=== PATIENT | male | born 1940 | race Caucasian/White ===

== ENCOUNTER 2019-11-26 13:44 | Emergency (ER) | payer OTHER, MEDICARE ==
[2019-11-26] MEDS ORDERED: LIDOCAINE 1% MPF 30 ML VIAL ONE (15:11)
[2019-11-26] MEDS ORDERED: DOXYCYCLINE 100 MG CAP PO ONE (15:11)
[2019-11-26] MEDS ORDERED: TETANUS & DIPHTHERIA TOX,ADULT 0.5 ML VIAL ONE (15:11)
--- NOTE | 2019-11-26 15:48 | ER ---
Nurse's Notes [facility] Name: Chip Sheriff Age: 79 yrs Sex: Male : 1940 Arrival Date: 11/26/2019 Time: 13:47 Bed 13 Private MD: Diagnosis: Hand Laceration Presentation: 11/25 14:01 Chief complaint: Patient states: Lac on L palm of hand by the hook of a Tie down strap ca1 <1.5 hrs [employer]. bleeding controlled. Coronavirus screen: Client denies travel out of the [place] in the last 14 days. At this time, the client does not indicate any symptoms associated with coronavirus-19. The client denies any previous COVID testing. Ebola Screen: Patient negative for fever greater than or equal to 101.5 degrees Fahrenheit, and additional compatible Ebola Virus Disease symptoms Patient denies exposure to infectious person. Patient denies travel to an Ebola-affected area in the 21 days before illness onset. No symptoms or risks identified at this time. Initial Sepsis Screen: Does the patient meet any 2 criteria? No. Patient's initial sepsis screen is negative. Does the patient have a suspected source of infection? No. Patient's initial sepsis screen is negative. Risk Assessment: Do you want to hurt yourself or someone else? Patient reports no desire to harm self or others. Onset of symptoms was November 26, 2019. 14:01 Method Of Arrival: Ambulatory ca1 14:01 Acuity: SATNAM 4 ca1 16:17 Complicating Factors: There are no complicating factors for this patient. jd3 - Immunization history:: Adult Immunizations up to date, Last tetanus immunization: unknown, Flu vaccine is up to date. - Social history:: Smoking status: Patient/guardian denies using tobacco, the patient reports quitting approximately 40 years ago. Screenin:33 Abuse screen: Denies threats or abuse. Nutritional screening: No deficits noted. jd3 Tuberculosis screening: No symptoms or risk factors identified. Fall Risk Ambulatory Aid- None/Bed Rest/Nurse Assist (0 pts). Gait- Normal/Bed Rest/Wheelchair (0 pts) Mental Status- Oriented to own ability (0 pts). Total Schmidt Fall Scale indicates No Risk (0-24 pts). Assessment: 15:32 General: Appears in no apparent distress. comfortable, Behavior is calm, cooperative, jd3 appropriate for age. Pain: Complains of pain in left hand. Neuro: Level of Consciousness is awake, alert, obeys commands, Oriented to person, place, time, situation. Cardiovascular: Capillary refill < 3 seconds Patient's skin is warm and dry. Respiratory: Airway is patent Respiratory effort is even, unlabored, Respiratory pattern is regular, symmetrical. GI: No signs and/or symptoms were reported involving the gastrointestinal system. : No signs and/or symptoms were reported regarding the genitourinary system. EENT: No signs and/or symptoms were reported regarding the EENT system. Derm: Skin is intact, Skin is dry, Skin is normal, Skin temperature is warm. Musculoskeletal: Circulation, motion, and sensation intact. Range of motion: intact in all extremities. Injury Description: Laceration sustained to left hand is 7.6 to 20 cm long, not bleeding. 16:18 Reassessment: Patient appears in no apparent distress at this time. Patient and/or jd3 family updated on plan of care and expected duration. Pain level reassessed. Patient is alert, oriented x 3, equal unlabored respirations, skin warm/dry/pink. Vital Signs: 14:01 BP 161 / 79; Pulse 54; Resp 16 S; Temp 97.5(TE); Pulse Ox 100% on R/A; Weight 97.52 kg ca1 (R); Height 5 ft. 9 in. (175.26 cm) (R); Pain 5/10; 14:01 Body Mass Index 31.75 (97.52 kg, 175.26 cm) ca1 ED Course: 13:47 Patient arrived in ED. as 14:03 Triage completed. ca1 14:49 Dashawn Hidalgo PA is PHCP. [facility] 14:49 Raul Navas MD is Attending Physician. jm 14:56 Valeria Villarreal, AUNDREA is Primary Nurse. iw 15:33 Arm band placed on. jd3 15:34 Patient has correct armband on for positive identification. Bed in low position. Call jd3 light in reach. Side rails up X 1. Pulse ox on. NIBP on. 15:34 Assist provider with laceration repair on left hand that was between 7.6 to 12.5 cm jd3 using sutures. Set up tray. Performed by Dashawn CUMMINS Patient tolerated well. Patient did not have IV access during this emergency room visit. 16:18 Wound care: to laceration located on left hand was cleaned with dressed with 4X4s, mik Kerlix. 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 Exp: 06/18/2020. Lot #: [id number]. } Route: IM; Site: right deltoid; 16:19 Follow up: Response: No adverse reaction jd3 15:08 Drug: Doxycycline 100 mg Route: PO; iw 16:19 Follow up: Response: No adverse reaction jd3 15:19 Drug: Lidocaine (1 %) 20 ml Volume: 20 ml; Route: Infiltration; jd3 16:19 Follow up: Response: No adverse reaction jd3 Outcome: 15:48 Discharge ordered by . kimberly 16:17 Discharged to home ambulatory, with family. jd3 16:17 Condition: stable 16:17 Discharge instructions given to patient, Instructed on discharge instructions, follow up and referral plans. medication usage, Demonstrated understanding of instructions, follow-up care, medications, Prescriptions given X 1. 16:19 Patient left the ED. jd3 Signatures: Dashawn Hidalgo PA PA jmm Martinez, Amelia as Williams, Irene, RN RN iw Davies, Jonathon, RN RN jd3 Acob, Cheryl, RN RN ca1
--- NOTE | 2019-11-26 15:48 | EDPHYS ---
Physician Documentation [facility] Name: Chip Sheriff Age: 79 yrs Sex: Male : 1940 Arrival Date: 11/26/2019 Time: 13:47 Bed 13 Private MD: ED Physician Raul Navas HPI: 11/25 14:50 This 79 yrs old Male presents to ER via Ambulatory with complaints of jmm Laceration To Hand. 14:50 The patient has a laceration occurred. The laceration(s) is(are) located on the left jmm hand. Onset: The symptoms/episode began/occurred acutely, just prior to arrival. Associated signs and symptoms: Pertinent negatives: deformity, dizziness, heavy bleeding, loss of consciousness, numbness distal to injury, suspected foreign body. Patient states his hand caught a hook while grabbing onto a boat just prior to arrival. Patient is unsure on tetanus immunizations. - Immunization history:: Adult Immunizations up to date, Last tetanus immunization: unknown, Flu vaccine is up to date. - Social history:: Smoking status: Patient/guardian denies using tobacco, the patient reports quitting approximately 40 years ago. ROS: 14:50 Constitutional: Negative for fever, chills, and weight loss, Cardiovascular: Negative jmm for chest pain, palpitations, and edema, Respiratory: Negative for shortness of breath, cough, wheezing, and pleuritic chest pain. 14:50 MS/extremity: Positive for injury or acute deformity, laceration. 14:50 All other systems are negative. Exam: 14:50 Constitutional: This is a well developed, well nourished patient who is awake, alert, jmm and in no acute distress. Head/Face: atraumatic. Eyes: EOMI, no conjunctival erythema appreciated ENT: Moist Mucus Membranes Neck: Trachea midline, Supple Chest/axilla: Normal chest wall appearance and motion. Cardiovascular: Regular rate and rhythm. No edema appreciated Respiratory: Normal respirations, no respiratory distress appreciated Abdomen/GI: Non distended, soft Back: Normal ROM 14:50 Neuro: Awake and alert, normal gait Psych: Behavior is normal, Mood is normal, Patient is cooperative and pleasant 14:50 Skin: 4 cm laceration noted ot the palm of the left hand. Vital Signs: 14:01 BP 161 / 79; Pulse 54; Resp 16 S; Temp 97.5(TE); Pulse Ox 100% on R/A; Weight 97.52 kg ca1 (R); Height 5 ft. 9 in. (175.26 cm) (R); Pain 5/10; 14:01 Body Mass Index 31.75 (97.52 kg, 175.26 cm) ca1 Laceration: 15:46 Wound Repair of 4cm ( 1.6in ) subcutaneous laceration to left hand. Distal jmm neuro/vascular/tendon intact. Anesthesia: Local anesthetic administered with 5 mls of 1% lidocaine. Wound prep: Simple cleansing with betadine by me. Skin closed with 8 5-0 Prolene using simple sutures and sterile technique. Patient tolerated well. MDM: 14:50 Patient medically screened. sofia 15:46 Data reviewed: vital signs, nurses notes. Counseling: I had a detailed discussion with kimberly the patient and/or guardian regarding: the historical points, exam findings, and any diagnostic results supporting the discharge/admit diagnosis, the need for outpatient follow up, to return to the emergency department if symptoms worsen or persist or if there are any questions or concerns that arise at home. ED course: Patient given wound infection return precautions. Patient understood and agrees with the plan of care. . 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 Exp: iw 06/18/2020. Lot #: [id number]. } Route: IM; Site: right deltoid; 16:19 Follow up: Response: No adverse reaction jd3 15:08 Drug: Doxycycline 100 mg Route: PO; iw 16:19 Follow up: Response: No adverse reaction jd3 15:19 Drug: Lidocaine (1 %) 20 ml Volume: 20 ml; Route: Infiltration; jd3 16:19 Follow up: Response: No adverse reaction jd3 Disposition: 18:19 Co-signature as Attending Physician, Raul Navas MD I agree with the assessment and [facility] plan of care. Disposition: 11/26/19 15:48 Discharged to Home. Impression: Hand Laceration. - Condition is Stable. - Discharge Instructions: Laceration Care, Adult. - Prescriptions for Doxycycline Hyclate 100 mg Oral Tablet - take 1 tablet by ORAL route every 12 hours; 20 tablet. - Medication Reconciliation Form, Thank You Letter, Antibiotic Education, Prescription Opioid Use form. - Follow up: Private Physician; When: 7 - 10 days; Reason: Recheck today's complaints, Continuance of care, Re-evaluation by your physician. Signatures: Raul Navas MD MD cha Mickail, Joel, PA PA jmm Williams, Irene, RN RN iw Davies, Jonathon, RN RN jd3 Lino, AUNDREA Castillo RN ca1 Corrections: (The following items were deleted from the chart) 16:19 15:48 11/26/2019 15:48 Discharged to Home. Impression: Hand Laceration. Condition is jd3 Stable. Forms are Medication Reconciliation Form, Thank You Letter, Antibiotic Education, Prescription Opioid Use. Follow up: Private Physician; When: 7 - 10 days; Reason: Recheck today's complaints, Continuance of care, Re-evaluation by your physician. kimberly
[2019-11-26 16:27] VITALS: BP 161/79; TEMP 97.5; O2SAT 100
== END 2019-11-26 16:19 | disposition home or self-care (01) ==
LOC: ER 13:44
PROC: 0JQK0ZZ Repair Left Hand Subcutaneous Tissue and Fascia, Open Approach (ICD-10-PCS; principal; 2019-11-26)
DX: S61.412A Laceration without foreign body of left hand, initial encounter (principal); W26.8XXA Contact with other sharp object(s), not elsewhere classified, initial encounter; Y93.89 Activity, other specified; Y92.9 Unspecified place or not applicable; Z23 Encounter for immunization
CPT/HCPCS: 90471; 90714; 99284

== ENCOUNTER 2023-07-21 12:22 | Emergency (ER) | payer OTHER ==
--- NOTE | 2023-07-21 12:55 | EDPHYS ---
Physician Documentation [facility] Name: Chip Sheriff Age: 83 yrs Sex: Male : 1940 Arrival Date: 07/21/2023 Time: 12:22 Bed Waiting Private MD: ED Physician Kevin Lewis HPI: 07/20 13:30 This 83 yrs old Male presents to ER via Ambulatory with complaints of Insect Bite. jh7 13:30 83-year-old male with no pertinent past medical history presents to the ER for an 7 insect bite to the dorsum of his right foot occurring last night. He reports that the area is itchy and he noticed a small amount of swelling around the bite this morning. Denies fever, redness, or significant pain.. Historical: - Allergies: 13:30 No Known Allergies; ph - Immunization history:: Adult Immunizations unknown. - Infectious Disease History:: Denies. - Social history:: Smoking status: Patient denies any tobacco usage or history of. ROS: 13:30 Constitutional: Per HPI jh7 Exam: 13:30 Constitutional: This is a well developed, well nourished patient who is awake, alert, jh7 and in no acute distress. Head/Face: Normocephalic, atraumatic. Eyes: Pupils equal round and reactive to light, extra-ocular motions intact. Lids and lashes normal. Conjunctiva and sclera are non-icteric and not injected. Cornea within normal limits. Periorbital areas with no swelling, redness, or edema. Neck: Trachea midline, no thyromegaly or masses palpated, and no cervical lymphadenopathy. Supple, full range of motion without nuchal rigidity, or vertebral point tenderness. No Meningismus. Cardiovascular: Regular rate and rhythm with a normal S1 and S2. No gallops, murmurs, or rubs. Normal PMI, no JVD. No pulse deficits. Respiratory: Lungs have equal breath sounds bilaterally, clear to auscultation and percussion. No rales, rhonchi or wheezes noted. No increased work of breathing, no retractions or nasal flaring. Abdomen/GI: Soft, non-tender, with normal bowel sounds. No distension or tympany. No guarding or rebound. No evidence of tenderness throughout. MS/ Extremity: Pulses equal, no cyanosis. Neurovascular intact. Full, normal range of motion. Neuro: Awake and alert, GCS 15, oriented to person, place, time, and situation. Motor strength 5/5 in all extremities. Sensory grossly intact. Normal gait. 13:30 Skin: lesion(s), pustule(s) noted, A single pustule noted to the dorsum of the right foot with mild soft tissue swelling without surrounding cellulitis., Vital Signs: 13:30 BP 129 / 78; Pulse 65; Resp 18; Temp 97.9; Pulse Ox 99% on R/A; ph MDM: 12:32 Patient medically screened. [facility] 12:35 Differential diagnosis: Insect bite, hives, cellulitis, abscess. Data reviewed: vital [facility] signs, nurses notes. Historians other than the Patient: Spouse/Significant Other: . Counseling: I had a detailed discussion with the patient and/or guardian regarding the historical points, exam findings, and any diagnostic results supporting the discharge/admit diagnosis, to return to the emergency department if symptoms worsen or persist or if there are any questions or concerns that arise at home. ED course: Patient has triamcinolone at home for eczema and states that he will use that. Advised to only start the prednisone if triamcinolone does not work. Return to the ER with any surrounding redness, streaking, or fever.. Administered Medications: No medications were administered Disposition Summary: 07/21/23 12:54 Discharge Ordered Notes: Location: Home [facility] Problem: new [facility] Symptoms: are unchanged [facility] Condition: Stable [facility] Diagnosis - Insect bite (nonvenomous) of foot [facility] Followup: [facility] - With: Private Physician - When: 2 - 3 days - Reason: Recheck today's complaints Discharge Instructions: - Discharge Summary Sheet [facility] - Insect Bite, Adult [facility] Forms: - Medication Reconciliation Form [facility] - Patient Portal Instructions [facility] - Leadership Thank You Letter [facility] Prescriptions: - Hydroxyzine HCl 25 mg Oral Tablet - take 1 tablet ORAL route every 6 hours As needed; 12 tablet; Refills: 0, [facility] Product Selection Permitted - Prednisone 20 mg Oral Tablet - take 2 tablets ORAL route once daily for 5 days; 10 tablet; Refills: 0, Product [facility] Selection Permitted Addendum: 07/24/2023 14:11 I was immediately available for consultation during this patient's visit. I did not e c2 personally see the patient or discuss the patient with the XIN. . Signatures: Debbie Asencio RN RN ph Hadash, Jennifer, PEDRO ALVAREZP jh7 Kevin Lewis MD MD ec2
--- NOTE | 2023-07-21 13:32 | ER ---
Nurse's Notes [facility] Name: Chip Sheriff Age: 83 yrs Sex: Male : 1940 Arrival Date: 07/21/2023 Time: 12:22 Bed Waiting Private MD: Diagnosis: Insect bite (nonvenomous) of foot Presentation: 07/20 13:30 Chief complaint: Patient states: Insect bite to R foot. Coronavirus screen: Vaccine ph status: Patient reports being unvaccinated. Ebola Screen: No symptoms or risks identified at this time. Initial Sepsis Screen: Does the patient meet any 2 criteria? No. Patient's initial sepsis screen is negative. Does the patient have a suspected source of infection? No. Patient's initial sepsis screen is negative. Risk Assessment: Do you want to hurt yourself or someone else? Patient reports no desire to harm self or others. Onset of symptoms was July 21, 2023. 13:30 Method Of Arrival: Ambulatory ph 13:30 Acuity: SATNAM 4 ph Triage Assessment: 13:30 Bite description: bite sustained to dorsum of right foot by unknown insect, animal ph information: vaccination(s) is not applicable. General: Appears in no apparent distress. Behavior is calm, cooperative. Pain: Complains of pain in dorsum of right foot. Neuro: Level of Consciousness is awake, alert, obeys commands, Oriented to person, place, time, situation. Derm: redness and swelling to dorsum of R foot. Musculoskeletal: Circulation, motion, and sensation intact. Range of motion: intact in all extremities. Injury Description: Bite sustained to dorsum of right foot. Historical: - Allergies: 13:30 No Known Allergies; ph - Immunization history:: Adult Immunizations unknown. - Infectious Disease History:: Denies. - Social history:: Smoking status: Patient denies any tobacco usage or history of. Screenin:33 [facility] ED Fall Risk Assessment (Adult) History of falling in the last 3 months, ph including since admission No falls in past 3 months (0 pts) Confusion or Disorientation No (0 pts) Intoxicated or Sedated No (0 pts) Impaired Gait No (0 pts) Mobility Assist Device Used No (0 pt) Altered Elimination No (0 pt) Score/Fall Risk Level 0 - 2 = Low Risk Oriented to surroundings, Maintained a safe environment, Hourly rounding (assess needs \T\ fall precautionary measures) done. Abuse screen: Denies threats or abuse. Denies injuries from another. Nutritional screening: No deficits noted. Tuberculosis screening: No symptoms or risk factors identified. Assessment: 13:32 General: SEE TRIAGE ASSESSMENT. ph Vital Signs: 13:30 BP 129 / 78; Pulse 65; Resp 18; Temp 97.9; Pulse Ox 99% on R/A; ph ED Course: 12:24 Patient arrived in ED. 4 12:32 Rylee Cruz FNP is [facility]. [facility] 12:32 Kevin Lewis MD is Attending Physician. [facility] 13:30 Triage completed. ph 13:31 Debbie Asencio RN is Primary Nurse. ph 13:31 Arm band placed on. ph 13:31 No provider procedures requiring assistance completed. Patient did not have IV access ph during this emergency room visit. Administered Medications: No medications were administered Medication: 13:32 VIS not applicable for this client. ph Outcome: 12:54 Discharge ordered by . [facility] 13:31 Discharged to home ambulatory, ph 13:31 Condition: good 13:31 Discharge instructions given to patient, Instructed on discharge instructions, follow up and referral plans. medication usage, Demonstrated understanding of instructions, follow-up care, medications, Prescriptions given X 2, 13:31 Patient left the ED. ph Signatures: Debbie Asencio, RN RN Lakshmi Acosta rg4 Rylee Cruz FNP [employer] OPERATOR [facility]
[2023-07-21 13:49] VITALS: BP 129/78; TEMP 97.9; O2SAT 99
== END 2023-07-21 13:31 | disposition home or self-care (01) ==
LOC: ER 12:22
DX: S90.861A Insect bite (nonvenomous), right foot, initial encounter (principal)
CPT/HCPCS: 99283